=== PATIENT | female | born 1970 | race African-American/Black ===

== ENCOUNTER → 2019-09-26 | Outpatient (CLI) | payer OTHER | LOC: M.RAD 14:47 | DX: R10.9 Unspecified abdominal pain (principal) ==

== ENCOUNTER → 2020-01-30 | Outpatient (CLI) | payer OTHER | LOC: M.MRI 08:58 | DX: G43.109 Migraine with aura, not intractable, without status migrainosus (principal); R41.0 Disorientation, unspecified; R42 Dizziness and giddiness ==

== ENCOUNTER → 2021-09-16 | Outpatient (CLI) | payer OTHER, BC | LOC: M.RAD 16:56 | PROVIDERS: ATTEND Nurse Practitioner Family | DX: S69.82XA Other specified injuries of left wrist, hand and finger(s), initial encounter (principal); X58.XXXA Exposure to other specified factors, initial encounter; Y93.89 Activity, other specified; Y92.89 Other specified places as the place of occurrence of the external cause; Y99.8 Other external cause status ==